=== PATIENT | female | born 1975 | race Caucasian/White ===

== ENCOUNTER → 2017-07-15 16:40 | Outpatient (CLI) | payer OTHER, BC, SELFPAY ==
--- NOTE | 2017-07-15 16:40 | DT_ITS ---
This patient was seen during an EMR downtime July 14, 2017 - July 21, 2017. This patient may have a combination of paper and electronic documentation or all paper documentation. All documentation is viewable within the e-chart portion of [facility] for each patient visit.
[2017-07-20 13:40] LABS: Rapid Plasmin Reagin (RPR) NONREACTIVE (NONREACTIVE)
[2017-07-30 10:41] LABS: HPV APTIMA, High Risk Negative (Negative)
== END ==
PROVIDERS: Visit Provider Obstetrics & Gynecology
DX: Z12.4 Encounter for screening for malignant neoplasm of cervix (principal)
CPT/HCPCS: 86592; 88175; G0145

== ENCOUNTER → 2017-07-15 16:55 | Outpatient (CLI) | payer BC, SELFPAY ==
--- NOTE | 2017-07-15 16:55 | DT_ITS ---
This patient was seen during an EMR downtime July 14, 2017 - July 21, 2017. This patient may have a combination of paper and electronic documentation or all paper documentation. All documentation is viewable within the e-chart portion of [facility] for each patient visit.
[2017-07-18 13:11] LABS: Chlamydia Trachomatis by PCR Negative (Negative); Neisserai gonorrhoeae by PCR Negative (Negative); Probe Check PASS; Sample Adequacy Control PASS; Specimen Processing Control PASS
[2017-07-21 14:22] LABS: HIV - WCH Nonreactive (Nonreactive)
[2017-07-21 21:38] LABS: Estradiol < 11.0 pg/mL; Follicle Stimulating Hormone 40.3 mIU/mL
== END ==
PROVIDERS: Family Provider Preventive Medicine Occupational Medicine; PCP Preventive Medicine Occupational Medicine; Visit Provider Obstetrics & Gynecology
DX: R30.0 Dysuria (principal); Z11.3 Encounter for screening for infections with a predominantly sexual mode of transmission
CPT/HCPCS: 36415; 82670; 83001; 86592; 86703; 87086; 87340; 87491; 87591

== ENCOUNTER → 2018-05-18 | Outpatient (CLI) | payer BC, SELFPAY ==
[2018-05-18 15:03] VITALS: BMI 34.2
--- NOTE | 2018-05-18 15:59 | US_ITS ---
STUDY: ULTRASOUND OF THE FEMALE PELVIS - COMPLETE REASON FOR EXAM: Female, 42 years old. History of endometriosis. LMP: February 24, 2018. TECHNIQUE: Transabdominal and Transvaginal TECHNICAL QUALITY: Adequate. COMPARISON: None. FINDINGS: The uterus is anteverted and is in a midline position. The uterus measures 6.5 cm x 6.0 cm x 2.7 cm. Normal uterine cervix. The endometrium measures 4.0 mm in thickness, and is hyperechoic. There is no demonstrated endometrial mass. There is a 1.7 cm x 2.2 cm x 1.0 cm fibroid in the fundal aspect of the uterus. I.U.D. - The patient does not have an I.U.D. The right ovary is visualized. The right ovary is enlarged and measures 8.2 cm x 4.8 cm x 2.9 cm. There is a 4.8 cm x 3.6 cm x 3.7 cm redundantly cystic mass with echoes within it. This may represent an hemorrhagic cyst. Adjacent to this, there is a 2.8 cm x 3.9 signed by 2.3 cm septated cyst. There is normal arterial and normal venous vascularity. The left ovary is non-visualized. There is minimal fluid in the cul-de-sac. The pre void volume of the bladder was 127 ml. Polycystic ovary disease: No. US/Transvaginal Non- IMPRESSION: Enlargement of the right ovary with the findings suggestive of a hemorrhagic cyst as well as a septated cyst. Small uterine fibroid. Electronically Signed: Kristofer Lerma, at 8:16 EDT , Service support ,
--- NOTE | 2018-05-18 15:59 | US_ITS ---
STUDY: ULTRASOUND OF THE FEMALE PELVIS - COMPLETE REASON FOR EXAM: Female, 42 years old. History of endometriosis. LMP: February 24, 2018. TECHNIQUE: Transabdominal and Transvaginal TECHNICAL QUALITY: Adequate. COMPARISON: None. FINDINGS: The uterus is anteverted and is in a midline position. The uterus measures 6.5 cm x 6.0 cm x 2.7 cm. Normal uterine cervix. The endometrium measures 4.0 mm in thickness, and is hyperechoic. There is no demonstrated endometrial mass. There is a 1.7 cm x 2.2 cm x 1.0 cm fibroid in the fundal aspect of the uterus. I.U.D. - The patient does not have an I.U.D. The right ovary is visualized. The right ovary is enlarged and measures 8.2 cm x 4.8 cm x 2.9 cm. There is a 4.8 cm x 3.6 cm x 3.7 cm redundantly cystic mass with echoes within it. This may represent an hemorrhagic cyst. Adjacent to this, there is a 2.8 cm x 3.9 signed by 2.3 cm septated cyst. There is normal arterial and normal venous vascularity. The left ovary is non-visualized. There is minimal fluid in the cul-de-sac. The pre void volume of the bladder was 127 ml. Polycystic ovary disease: No. US/Pelvic (Non ) IMPRESSION: Enlargement of the right ovary with the findings suggestive of a hemorrhagic cyst as well as a septated cyst. Small uterine fibroid. Electronically Signed: Kristofer Lerma, at 8:16 EDT , Service support ,
== END | disposition home or self-care (01) ==
LOC: US 15:58
PROVIDERS: Family Provider Preventive Medicine Occupational Medicine; PCP Preventive Medicine Occupational Medicine; Referring Provider Obstetrics & Gynecology; Visit Provider Obstetrics & Gynecology
DX: N80.9 Endometriosis, unspecified (principal)
CPT/HCPCS: 76830; 76856; 93976

== ENCOUNTER → 2018-07-10 | Outpatient (CLI) | payer BC, SELFPAY ==
[2018-05-18 15:03] VITALS: BMI 34.2
[2018-07-10 17:06] LABS: Estradiol 15.3 pg/mL
== END | disposition home or self-care (01) ==
LOC: LAB 15:51
PROVIDERS: Family Provider Preventive Medicine Occupational Medicine; PCP Preventive Medicine Occupational Medicine; Referring Provider Obstetrics & Gynecology; Visit Provider Obstetrics & Gynecology
DX: N95.1 Menopausal and female climacteric states (principal)
CPT/HCPCS: 36415; 82670; 83001

== ENCOUNTER → 2019-02-08 11:00 | Outpatient (CLI) | payer MEDICAID, SELFPAY ==
[2018-05-18 15:03] VITALS: BMI 34.2
--- NOTE | 2019-02-14 01:57 | PCM.HPOB.BLA ---
- Problem List (1) Endometriosis Status: Chronic Comment: plan lavhbs rso possible cystectomy possible norah, cysto History and Physical Date of Admission: 02/16/19 Intake Vital Signs 02/05/19 BMI 34.2 02/05/19 Height 5 ft 7 in 02/05/19 Weight: 218 lb 02/05/19 BMI 34.1 02/05/19 BP 137/87 H Intake Visit Reasons: ERAS LAVH RSO poss CYSTECTOMY poss NORAH CYSTOSCOPY Learning And Development Consultant Required: No Is patient in pain?: No Allergies sulfamethoxazole [From Bactrim] Allergy (Verified 02/05/19 11:18) Unknown trimethoprim [From Bactrim] Allergy (Verified 02/05/19 11:18) Unknown Medications Fluoxetine [Prozac] 40 mg PO DAILY 12/14/12 [History Confirmed 02/05/19] Hctz/Bisoprolol Fumarate [Ziac 2.5/6.25MG Tablet] 1 tab PO DAILY 12/14/12 [History Confirmed 02/05/19] traMADol [Ultram (G)] 50 mg PO Q4H PRN PRN #24 tab 12/14/12 [Rx Confirmed 02/05/19] Omeprazole [Prilosec] 40 mg PO BID 11/20/14 [History Confirmed 02/05/19] Zolpidem Tartrate [Ambien (Generic)] 5 mg PO QHS PRN PRN 11/20/14 [History Confirmed 02/05/19] thyroid (pork) 30 mg tablet 30 mg PO DAILY 11/04/17 [History Confirmed 02/05/19] norethindrone 1 mg-ethinyl estradiol 20 mcg (24)-iron 75 mg (4) tablet 1 tab PO QDAY #28 tab 08/16/18 [Rx Confirmed 02/05/19] valacyclovir 500 mg tablet 500 mg PO DAILY #30 tab 01/18/19 [Rx Confirmed 02/05/19] Is last menstrual period known: No Post menopausal: No Patient : No : No PFSH Medical History (Updated 02/05/19 @ 11:26 by Marimar Melvin MD) Anxiety with depression (Acute) Hypertension (Chronic) Mariel's disease (Acute) Hepatitis C (Acute) Thyroid disorder (Acute) Surgical History History of left oophorectomy (Acute) S/P tonsillectomy and adenoidectomy (Acute) Family History Unknown Breast cancer Cancer leukemia Hardening of the arteries of the heart Social History (Updated 02/05/19 @ 11:29 by Marimar Melvin MD) Smoking Status: Never smoker alcohol intake: never substance use type: does not use caffeine: Yes what type of physical activity do you participate in: walking frequency: 3-4 times per week seatbelt use: always do you feel safe at home: Yes additional social history: single- [facility] HPI ERAS LAVH RSO poss CYSTECTOMY poss NORAH CYSTOSCOPY: Details: JAMIL RUBY is a 43 year old who presents for preop appointment for endometriosis planning LAVH RSO cysto. Pregancy History 0 Elective abortions Hx Para Spontaneous abortions Hx # Term Pregnancies Ectopic pregnancies Hx # Pregnancies Multiple births # of living children ROS Const Constitutional: Denies fatigue, fever(s), headache(s), increased appetite, poor appetite, weight gain or weight loss ENT ENT: Denies dry mouth Cardio Card: Denies chest pain Resp Resp: Denies cough or dyspnea GI GI: Reports as per HPI; denies abdominal pain, constipation, nausea or vomiting : Reports as per HPI; denies difficulty urinating, painful urination, blood in urine, nipple discharge, pelvic pain, urinary frequency, urinary incontinence, urinary hesitancy, urinary urgency, vaginal discharge, vaginal dryness, vaginal odor, vaginal itching or other Skin Skin/Breast: Denies nipple discharge Exam Const General: cooperative, healthy appearing, comfortable, no acute distress, well developed Nutritional Appearance: average body habitus Orientation: alert [facility] Head: normal to inspection, normocephalic Ears: hearing grossly normal bilaterally, external ears normal Nose: external nose normal, nares normal Face and sinus: normal facial exam Neck Neck: normal visual inspection, no lymphadenopathy, trachea midline Thyroid: thyroid normal Resp Effort & Inspection: normal respiratory effort GI Inspection: normal to inspection, non-distended Palpation: soft, no hepatosplenomegaly General: bladder normal to palpation External Female Exam: normal external appearance, normal appearance of the urethra Urethra: normal appearance of the urethra, normal palpation, no discharge Speculum Exam - Vagina: normal appearance of the vagina, normal vaginal discharge Speculum Exam - Cervix: normal appearance of the cervix, nontender Bimanual Exam- Vagina & Uterus: normal bimanual exam, uterine size normal, bladder normal to palpation, uterine shape normal, No cervical tenderness, uterine mobility normal, uterine consistency normal, normal cervical palpation, uterus non-tender Bimanual Exam- Adnexa, other: normal adnexae, adnexae mobile, no adnexal masses, pelvic support normal Pelvic Support: normal Musc Other: gross motor intact no deficits, full bilateral strength Skin General: no rashes or lesions noted Neuro Motor: muscle tone normal throughout Assessment & Plan Problems 1. Endometriosis N80.9 plan lavhbs rso possible cystectomy possible norah, cysto Plan After discussing the patient's diagnosis and treatment plan options, patient wishes to proceed with surgical management. I have discussed with the patient the risks, benefits, and alternatives of the procedure which include but are not limited to risks of anesthesia, bleeding, infection, possible damage to bowel, bladder, or surrounding vasculature which could lead to additional surgery to evaluate any complications. Patient agrees to procedure and wishes to proceed. ACOG/uptodate references given for additional information regarding procedure. Coding Level of Care Code No Charge Diagnoses Endometriosis N80.9
[2019-02-15 12:35] LABS: Hematocrit 38.3 % (37-47); Hemoglobin 13.4 g/dL (12.0-15.0); Mean Corpuscular Hgb 31.2 pg (27.0-32.0); Mean Corpuscular Volume 89.3 fL (81-99); Mean Platelet Vol. 9.8 fl (6.2-12.0); Platelet Count 284 K/mm3 (150-450); RBC Distribution Width SD 38.9 fl (35.1-43.9); Red Blood Count 4.29 M/mm3 (4.2-5.4)
[2019-02-15 13:26] LABS: BUN 11 mg/dL (7-18); Glucose 99 mg/dL (74-106)
[2019-02-15 13:27] LABS: AST(SGOT) 18 U/L (15-37); Alanine Aminotransfer ALT/SGPT 25 U/L (13-56); Albumin, Serum 3.6 g/dL (3.2-5.0); Alkaline Phosphatase 48 U/L (45-117); Anion Gap 4 (5-15); BUN/Creat Ratio 13.8 RATIO (10-20); Bilirubin, Direct 0.12 mg/dL (0.00-0.30); Calcium,Total 8.9 mg/dL (8.5-10.1); Chloride 109 mmol/L (98-107); EST Glomerular Filtration Rate 83 mL/min (>60); Est Glom Filt Rate - Afr Amer 100 mL/min (>60); Globulin 3.4 g/dL (2.2-4.2); Potassium 3.6 mmol/L (3.5-5.1); Sodium Level 140 mmol/L (136-145); Thyroid Stim Hormone (TSH) 1.05 uIU/mL (0.358-3.74)
== END ==
PROVIDERS: PCP Preventive Medicine Occupational Medicine; Referring Provider Obstetrics & Gynecology; Visit Provider Obstetrics & Gynecology
DX: Z01.818 Encounter for other preprocedural examination (principal); N80.9 Endometriosis, unspecified; E06.3 Autoimmune thyroiditis; Z79.899 Other long term (current) drug therapy; F41.8 Other specified anxiety disorders; I10 Essential (primary) hypertension
CPT/HCPCS: 36415; 80048; 80076; 84443; 85027; 86850; 86900; 86901

== ENCOUNTER 2019-06-08 11:27 | Day surgery (SDC) | payer OTHER, SELFPAY ==
[2019-02-05 11:18] VITALS: BMI 34.2
[2019-06-08] VITALS (9 sets, daily range): BP systolic 104–139; BP diastolic 63–84; PULSE 62–82; RESP 16–18; TEMP 36.1–37.2; O2SAT 98–100; BMI 34.8; BMI 34.9
--- NOTE | 2019-06-08 | HYST_PTH ---
PATIENT: JAMIL RUBY LOC: [facility] – [place] U#:[id number] AGE/SX: 43/F ROOM: RE06/08/[address]: Dr. Marimar Melvin MD : 1975 BED: DIS: 06/09/2019 SPEC #: [id number] RECD: 06/09/19 12:20 STATUS: RENÉ ZAC #: [id number] ATILIO: 06/08/19 00:[address]: Marimar Melvin DEPT: SURGICAL PATHOLOGY RECD BY: Checo Freeman ENTERED: 06/09/19 12:21 SP TYPE: HYSTERECT OTHR DR: Dr. Elías Carreno DO Tissues: Uterus, NOS Procedures: Surgery Specimen Level V HEADER OPERATION: ERAS, laparoscopic assisted vaginal hysterectomy PRE-OP DIAGNOSIS: Endometriosis N80.9 TISSUE SUBMITTED: Uterus, right fallopian tube and ovary, left fallopian tube MICROSCOPIC DIAGNOSIS Uterus, hysterectomy: Cervix - nabothian cyst, squamous metaplasia and mild chronic inflammation. Endometrium - weakly proliferative endometrium. Myometrium - leiomyomas and focal adenomyosis. Right fallopian tube - benign paratubal cysts. Left fallopian tube - no pathologic change. Right ovary - serous cystadenofibroma. AM:[place] 06/10/19 COMMENT Case has been reviewed in consultation with Dr. Victoria who concurs with the above diagnosis. IDC:BENITO MICROSCOPIC DESCRIPTION Slides are reviewed. GROSS DESCRIPTION Received in fixative is one container labeled with the patient's name and designated uterus, right fallopian tube and ovary and left fallopian tube. The specimen consists of a hysterectomy specimen consisting of uterus with cervix, attached right fallopian tube and ovary and attached left fallopian tube. The uterus with cervix weighs 92 gm and measures 10 x 7 x 4.5 cm. The serosal surface is solis, glistening. The ectocervical mucosa is unremarkable. The external os is circular in contour and covered with hemorrhagic, mucoid material. The triangular endometrial cavity measures 4.5 cm in length and up to 2.5 cm in width. The endometrium is solis, glistening without any mass lesion and measures 0.1 cm in thickness. Sections of the uterine wall reveal multiple intramural and subserosal nodular masses. The largest mass is subserosal in location and measures 2.5 cm in diameter. The uninvolved uterine wall measures up to 2 cm in thickness. The left fallopian tube measures 3.5 cm in length and 0.5 cm in diameter. The fimbrial end is not identified. Sections reveal focally dilated lumen filled with clear fluid. The right fallopian tube measures 6 cm in length and up to 0.6 cm in diameter. The fimbrial end is identified. Sections reveal unremarkable cut surfaces. The soft to cystic right ovary measures 8.5 x 5.5 x 3.5 cm and weighs 71 gm. The external surface does not show any papillation and is inked black. The entire ovary is replaced by a multiloculated cyst with focal solid area and papillation. Veneer Taper sections are submitted in 22 cassettes as follows: 1 - anterior cervix, 2 - posterior cervix, 3 & 4 - anterior uterine wall, 5 & 6 - posterior uterine wall, 7 - largest nodular mass, 8 - smaller nodular masses, 9 - left fallopian tube, 10 - right fallopian tube, 11-22 - right ovary. / BENITO:[place] 06/09/19 TC:1 CPT: 56956
[2019-06-08] MEDS: Lactated Ringers 1,000 ML 40 ML IV (07:00)
[2019-06-08 11:55] LABS: Hematocrit 40.1 % (37-47); Hemoglobin 14.3 g/dL (12.0-15.0); Mean Corp Hgb Conc 35.7 g/dL (32-36); Mean Corpuscular Hgb 31.3 pg (27.0-32.0); Mean Corpuscular Volume 87.7 fL (81-99); Mean Platelet Vol. 9.9 fl (6.2-12.0); Platelet Count 304 K/mm3 (150-450); RBC Distribution Width SD 38.4 fl (35.1-43.9); Red Blood Count 4.57 M/mm3 (4.2-5.4)
[2019-06-08] MEDS: Phenazopyridine 95 MG Tablet 190 MG PO (12:04)
[2019-06-08] MEDS: Celecoxib 200 MG Capsule 400 MG PO (12:04)
[2019-06-08] MEDS: Gabapentin 600 MG Tablet PO (12:05)
[2019-06-08] MEDS: Acetaminophen 500 MG Tablet 1000 MG PO ×3 (12:05→23:00)
[2019-06-08] MEDS: Enoxaparin 40 MG/0.4 ML Syringe SC (12:05)
[2019-06-08 12:06] LABS: Internal QC Validated? YES +Cl - CLEAR BKGD
[2019-06-08 12:07] LABS: Pregnancy, Urine Negative Negative
[2019-06-08 12:19] LABS: AST(SGOT) 21 U/L (15-37); Alanine Aminotransfer ALT/SGPT 26 U/L (13-56); Albumin, Serum 3.6 g/dL (3.2-5.0); Alkaline Phosphatase 64 U/L (45-117); Anion Gap 3 (5-15); BUN 10 mg/dL (7-18); BUN/Creat Ratio 15.1 RATIO (10-20); Bilirubin, Direct 0.11 mg/dL (0.00-0.30); Calcium,Total 8.3 mg/dL (8.5-10.1); Chloride 107 mmol/L (98-107); Creatinine, Serum 0.66 mg/dL (0.55-1.02); EST Glomerular Filtration Rate 102 mL/min (>60); Est Glom Filt Rate - Afr Amer 124 mL/min (>60); Estimated Creatinine Clearance 105.78 ml/min; Globulin 3.6 g/dL (2.2-4.2); Glucose 108 mg/dL (74-106); Magnesium 2.2 mg/dL (1.6-2.6); Protein, Total 7.2 g/dL (6.4-8.2); Sodium Level 139 mmol/L (136-145); Thyroid Stim Hormone (TSH) 1.67 uIU/mL (0.358-3.74)
[2019-06-08 12:30] LABS: Bedside Glucose 113 mg/dL (70-110)
--- NOTE | 2019-06-08 12:42 | PCM.HPOB.BLA ---
- Problem List (1) Endometriosis Status: Chronic Comment: plan lavhbs rso possible cystectomy possible norah, cysto (2) Pelvic pain Status: Acute History and Physical Date of Admission: 06/08/19 Intake Vital Signs 02/05/19 BMI 34.2 02/05/19 Height 5 ft 7 in 02/05/19 Weight: 218 lb 02/05/19 BMI 34.1 02/05/19 BP 137/87 H Intake Visit Reasons: ERAS LAVH RSO poss CYSTECTOMY poss NORAH CYSTOSCOPY Pinion Staker Required: No Is patient in pain?: No Allergies sulfamethoxazole [From Bactrim] Allergy (Verified 02/05/19 11:18) Unknown trimethoprim [From Bactrim] Allergy (Verified 02/05/19 11:18) Unknown Medications Fluoxetine [Prozac] 40 mg PO DAILY 12/14/12 [History Confirmed 02/05/19] Hctz/Bisoprolol Fumarate [Ziac 2.5/6.25MG Tablet] 1 tab PO DAILY 12/14/12 [History Confirmed 02/05/19] traMADol [Ultram (G)] 50 mg PO Q4H PRN PRN #24 tab 12/14/12 [Rx Confirmed 02/05/19] Omeprazole [Prilosec] 40 mg PO BID 11/20/14 [History Confirmed 02/05/19] Zolpidem Tartrate [Ambien (Generic)] 5 mg PO QHS PRN PRN 11/20/14 [History Confirmed 02/05/19] thyroid (pork) 30 mg tablet 30 mg PO DAILY 11/04/17 [History Confirmed 02/05/19] norethindrone 1 mg-ethinyl estradiol 20 mcg (24)-iron 75 mg (4) tablet 1 tab PO QDAY #28 tab 08/16/18 [Rx Confirmed 02/05/19] valacyclovir 500 mg tablet 500 mg PO DAILY #30 tab 01/18/19 [Rx Confirmed 02/05/19] Is last menstrual period known: No Post menopausal: No Patient : No : No PFSH Medical History (Updated 02/05/19 @ 11:26 by Marimar Melvin MD) Anxiety with depression (Acute) Hypertension (Chronic) Mariel's disease (Acute) Hepatitis C (Acute) Thyroid disorder (Acute) Surgical History History of left oophorectomy (Acute) S/P tonsillectomy and adenoidectomy (Acute) Family History Unknown Breast cancer Cancer leukemia Hardening of the arteries of the heart Social History (Updated 02/05/19 @ 11:29 by Marimar Melvin MD) Smoking Status: Never smoker alcohol intake: never substance use type: does not use caffeine: Yes what type of physical activity do you participate in: walking frequency: 3-4 times per week seatbelt use: always do you feel safe at home: Yes additional social history: single- [facility] HPI ERAS LAVH RSO poss CYSTECTOMY poss NORAH CYSTOSCOPY: Details: JAMIL RUBY is a 43 year old who presents for preop appointment for endometriosis planning LAVH RSO cysto. Pregancy History 0 Elective abortions Hx Para Spontaneous abortions Hx # Term Pregnancies Ectopic pregnancies Hx # Pregnancies Multiple births # of living children ROS Const Constitutional: Denies fatigue, fever(s), headache(s), increased appetite, poor appetite, weight gain or weight loss ENT ENT: Denies dry mouth Cardio Card: Denies chest pain Resp Resp: Denies cough or dyspnea GI GI: Reports as per HPI; denies abdominal pain, constipation, nausea or vomiting : Reports as per HPI; denies difficulty urinating, painful urination, blood in urine, nipple discharge, pelvic pain, urinary frequency, urinary incontinence, urinary hesitancy, urinary urgency, vaginal discharge, vaginal dryness, vaginal odor, vaginal itching or other Skin Skin/Breast: Denies nipple discharge Exam Const General: cooperative, healthy appearing, comfortable, no acute distress, well developed Nutritional Appearance: average body habitus Orientation: alert [facility] Head: normal to inspection, normocephalic Ears: hearing grossly normal bilaterally, external ears normal Nose: external nose normal, nares normal Face and sinus: normal facial exam Neck Neck: normal visual inspection, no lymphadenopathy, trachea midline Thyroid: thyroid normal Resp Effort & Inspection: normal respiratory effort GI Inspection: normal to inspection, non-distended Palpation: soft, no hepatosplenomegaly General: bladder normal to palpation External Female Exam: normal external appearance, normal appearance of the urethra Urethra: normal appearance of the urethra, normal palpation, no discharge Speculum Exam - Vagina: normal appearance of the vagina, normal vaginal discharge Speculum Exam - Cervix: normal appearance of the cervix, nontender Bimanual Exam- Vagina & Uterus: normal bimanual exam, uterine size normal, bladder normal to palpation, uterine shape normal, No cervical tenderness, uterine mobility normal, uterine consistency normal, normal cervical palpation, uterus non-tender Bimanual Exam- Adnexa, other: normal adnexae, adnexae mobile, no adnexal masses, pelvic support normal Pelvic Support: normal Musc Other: gross motor intact no deficits, full bilateral strength Skin General: no rashes or lesions noted Neuro Motor: muscle tone normal throughout Assessment & Plan Problems 1. Endometriosis N80.9 plan lavhbs rso possible cystectomy possible norah, cysto Plan After discussing the patient's diagnosis and treatment plan options, patient wishes to proceed with surgical management. I have discussed with the patient the risks, benefits, and alternatives of the procedure which include but are not limited to risks of anesthesia, bleeding, infection, possible damage to bowel, bladder, or surrounding vasculature which could lead to additional surgery to evaluate any complications. Patient agrees to procedure and wishes to proceed. ACOG/uptodate references given for additional information regarding procedure. Coding Level of Care Code No Charge Diagnoses Endometriosis N80.9 Essential Procedure Criteria Procedure Essential: Yes Criteria Note: On 04/27/2019 the [facility] ([facility]) Public Order signed by [facility] Director Oneida Poe M.D., regarding the Management of Non-Essential Surgeries and Procedures for the purpose of preserving Personal Protective Equipment (PPE) and critical hospital capacity and resources within [place] went into effect as of 04/28/2019 at 5:00PM. According to the [facility] Public Order: This action will remain in full force and effect until the State of Emergency declared by the Governor no longer exists or the Director of the [facility] rescinds or modifies this Order.. This [facility] order stated all non-essential or elective surgeries and procedures that utilize PPE should be delayed unless there is undue risk to the current or future health of a patient. After reviewing the aforementioned [facility] Public Order and the patients clinical case, I have determined that the scheduled procedure meets the criteria to go forward. Risk to Patient if Procedure Delayed: Presence of severe symptoms causing an inability to perform ADL's
--- NOTE | 2019-06-08 12:56 | OP.PCM_ITS ---
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 Patient was taken back to the operating room and placed in the dorsal lithotomy position. General anesthesia was induced and patient was prepped and draped in normal sterile fashion. Uterine manipulator was placed inside the uterus and Fields catheter placed in the bladder. The umbilicus was grasped with towel clamps and an intraumbilical incision was made after injecting with quarter per cent Marcaine and a Veress needle entered into the abdomen confirmed to be intra-abdominal with a low opening pressure. Abdomen was insufflated with CO2 gas and the Veress needle removed and the 5 mm trocar was placed under direct visualization without complication. Right and left lower quadrants were transilluminated and injected with quarter percent Marcaine and 5 mm ports placed under direct visualization. Pelvis was well visualized see operative findings for additional information. Bilateral fallopian tubes were identified and transected with the LigaSure device across the mesosalpinx to the level of the utero-ovarian ligament which was also transected with the LigaSure device. right IP ligament transected to also remove the right ovary. The broad ligament was opened up by transecting the round ligament bilaterally and skeletonizing the uterine vessels bilaterally and creating a bladder flap using the LigaSure device. The uterine arteries were transected bilaterally with good visualization of the bladder and the ureters were seen to be inferior lateral to the operative area. Attention was then paid to the vaginal portion of the procedure and the cervix was grasped with Adonis clamps and circumferentially injected with dilute vasopressin. A circumferential incision was made and the vaginal mucosa was mobilized off posteriorly and the cul-de-sac entered into sharply and a longneck speculum placed. The anterior cul-de-sac was then identified and entered into sharply. The uterosacral ligaments were clamped cut and suture ligated with 0 Monocryl bilaterally followed by the cardinal ligaments which were clamped cut and suture ligated bilaterally with 0 Monocryl. The uterus serially descended and was removed without difficulty with minimal morcellation. Pelvic sidewall pedicles were checked and noted to have excellent hemostasis. The vaginal mucosa was reapproximated incorporating the posterior peritoneum. This was reapproximated using 0 Vicryl [id number] sutures. Excellent hemostasis was noted. The cystoscopy was then performed and bilateral ureteral strong spray was noted and the bladder was noted to have no abnormality or lesions seen. Fields catheter was replaced and then attention paid to the abdominal portion of the procedure again. The pelvis and cul-de-sac was well visualized and no significant active bleeding noted but some raw areas were seen on the peritoneum and therefore Austin was applied. Pressure was taken down and the areas visualized and noted of excellent hemostasis. All ports were removed under direct visualization without complication and the abdomen was desufflated of air. The instruments removed from the abdomen and the vagina vaginal sweep was negative. Port sites on the abdomen were closed with 4-0 Monocryl interrupted sutures and Steri's and windows were applied. She was awoken and taken recovery in stable condition. Grafts/Implants Used: none - Complications none Multi Select Codes - Urinary/Genital Urinary/Genital CPT Codes: 99965 Cystoscopy, 84164 LAVH+BS/O <250gr Uterus
[2019-06-08] MEDS: Cefazolin 2 GM in 0.9% Normal Saline 100 ML IV (14:08)
[2019-06-08] MEDS: Vasopressin 20 UNITS/ML Vial (14:58)
[2019-06-08] MEDS: Ondansetron 4 MG/2 ML Vial IV (15:21)
[2019-06-08] MEDS: Bupivacaine 0.25% 30 ML Vial (15:26)
[2019-06-08] MEDS: Lactated Ringers 1,000 ML 70 ML IV (16:21)
--- NOTE | 2019-06-08 16:43 | PCM.DC.VHY ---
Discharge Diet: No Restrictions Discharge Activity: Return to Normal Activity, May Not Drive, May Shower May resume sexual activity in: 6-8 weeks Call your doctor if your incision/area has: Continuous Slow Oozing, Sudden Increased Bleeding, Increased Pain/ Swelling, Increased Redness, Foul Smelling Discharge Call your doctor if you observe: Fever of 101 or Higher, Inability to urinate, Inability to have a bowel movement, Using more than one pad per hour Allergies/Adverse Reactions: Allergies sulfamethoxazole [From Bactrim] Allergy (Verified 06/08/19 11:53) Unknown trimethoprim [From Bactrim] Allergy (Verified 06/08/19 11:53) Unknown Medications to take at Discharge Fluoxetine [Prozac] 10 mg PO DAILY 12/14/12 traMADol [Ultram (G)] 50 mg PO Q4H PRN PRN #24 tab 12/14/12 Zolpidem Tartrate [Ambien (Generic)] 5 mg PO QHS PRN PRN 11/20/14 thyroid (pork) 30 mg tablet 30 mg PO DAILY 11/04/17 norethindrone 1 mg-ethinyl estradiol 20 mcg (24)-iron 75 mg (4) tablet 1 tab PO QDAY #28 tab 08/16/18 Alprazolam [Xanax] 0.25 mg PO PRN PRN 02/08/19 Ashwagandha 800 mg PO BID 06/04/19 Bisoprolol/Hydrochlorothiazide [Ziac 2.5-6.25 mg Tablet] 1 ea PO DAILY 06/04/19 Ginseng 800 mg PO DAILY 06/04/19 Macro Root 800 mg PO BID 06/04/19 Valacyclovir HCl [Valacyclovir] 500 mg PO DAILY 06/04/19 Naproxen [Naprosyn] 250 - 500 mg PO Q8H PRN PRN #30 tab 06/08/19 Oxycodone HCl/Acetaminophen [Percocet 5-325] 1 - 2 tab PO Q6H PRN PRN 7 Days #15 tab 06/08/19 The following prescriptions were given: Naproxen [Naprosyn] 250 - 500 mg PO Q8H PRN PRN #30 tab PRN Reason: MILD PAIN Transmission Status: Received by [facility] Oxycodone HCl/Acetaminophen [Percocet 5-325] 1 - 2 tab PO Q6H PRN PRN 7 Days #15 tab PRN Reason: Pain Transmission Status: Received by [facility] Primary Care Physician: Elías Carreno DO [Primary Care Provider] - Test Results: Test results from this visit will be discussed in further detail at your follow-up appointment, if applicable. Please Follow Up With: Marimar Melvin MD - [phone]
[2019-06-08] MEDS: Ketorolac 30 MG/ML Syringe IV ×2 (16:44→23:01)
[2019-06-08] MEDS: oxyCODONE 5 MG Tablet PO ×2 (18:51→22:47)
[2019-06-08] MEDS: Docusate Sodium 100 MG Capsule PO (22:47)
[2019-06-08] MEDS: Acyclovir 200 MG Capsule 400 MG PO (22:47)
[2019-06-08] MEDS: Zolpidem Tartrate 5 MG Tablet PO (22:47)
--- NOTE | 2019-06-08 23:58 | NURSING ---
PT resting in bed. This RN introduced self to the patient and explained we have paged the doctor multiple times and have not had a call back for additional. pt very understanding. She reports medications are starting to help and she wants to try and get some sleep.
[2019-06-09] MEDS: HYDROmorphone 1 MG/ML Syringe IV ×3 (00:45→14:53)
[2019-06-09 03:10] VITALS: BP 113/60; PULSE 97; RESP 16; TEMP 37.1; O2SAT 95
[2019-06-09 06:34] LABS: Hematocrit 35.8 % (37-47); Hemoglobin 12.9 g/dL (12.0-15.0); Mean Corpuscular Hgb 31.3 pg (27.0-32.0); Mean Corpuscular Volume 86.9 fL (81-99); Mean Platelet Vol. 9.6 fl (6.2-12.0); Platelet Count 279 K/mm3 (150-450); RBC Distribution Width SD 38.3 fl (35.1-43.9); Red Blood Count 4.12 M/mm3 (4.2-5.4); White Blood Count 10.3 K/mm3 (4.4-11.0)
[2019-06-09] MEDS: Ketorolac 30 MG/ML Syringe IV ×2 (06:41→11:26)
[2019-06-09] MEDS: Acetaminophen 500 MG Tablet 1000 MG PO ×2 (06:41→12:17)
[2019-06-09] MEDS: oxyCODONE 5 MG Tablet PO ×2 (06:47→11:24)
[2019-06-09] MEDS: 0.9% Saline Lock 10 ML Syringe IV ×2 (07:36→14:53)
[2019-06-09 08:02] VITALS: O2SAT 96
--- NOTE | 2019-06-09 08:56 | PN.OBGYN_ITS ---
Patient Problems: Active and Suspected Problems (Last Updated 02/05/19 @ 11:[address] Marimar Melvin MD) Pelvic pain (Acute) Subjective: patient recovering well, denies CP, SOB, N, or V. patient is ambulating, voiding ,tolerating adequate po, and pain is controlled with oral medications. - Physical Exam Vitals/I&O's: Vital Signs Temp Pulse Resp BP Pulse Ox 98.8 F 97 16 113/60 95 06/09/19 03:10 06/09/19 03:10 06/09/19 03:10 06/09/19 03:10 06/09/19 03:10 Oxygen Flow Rate (L/min) 6 Oxygen Delivery Method Room Air Weight: 222 lb 7.143 oz Body Mass Index (BMI) 34.9 Intake and Output for Last 24 Hours 06/07/19 06/08/19 06/09/19 23:59 23:59 23:59 Intake Total 2270 / 2270 500 / 500 Output Total 600 / 600 900 / 900 Balance 1670 / 1670 -400 / -400 General: Alert, Oriented x3 Laboratory Results 06/08/19 11:45: WBC 6.0, RBC 4.57, Hgb 14.3, Hct 40.1, MCV 87.7, MCH 31.3, MCHC 35.7, RDW Std Deviation 38.4, RDW Coeff of Payal 12.0, Plt Count 304, MPV 9.9 06/08/19 11:45: Sodium 139, Potassium 4.0, Chloride 107, Carbon Dioxide 29.0, Anion Gap 3 L, BUN 10, Creatinine 0.66, Estim Creat Clear Calc 105.78, Est GFR (MDRD) Af Amer 124, Est GFR (MDRD) Non-Af 102, BUN/Creatinine Ratio 15.1, Glucose 108 H, Calcium 8.3 L, Magnesium 2.2, Total Bilirubin 0.40, Direct Bilirubin 0.11, AST 21, ALT 26, Alkaline Phosphatase 64, Total Protein 7.2, Albumin 3.6, Globulin 3.6, TSH 1.67 06/08/19 11:45: Blood Type O POSITIVE, Antibody Screen NEGATIVE 06/08/19 12:01: POC Glucose 113 H 06/08/19 : Urine Test Negative 06/09/19 06:26: WBC 10.3, RBC 4.12 L, Hgb 12.9, Hct 35.8 L, MCV 86.9, MCH 31.3, MCHC 36.0, RDW Std Deviation 38.3, RDW Coeff of Payal 12.0, Plt Count 279, MPV 9.6 Current Medications Acetaminophen (Tylenol) 1,000 mg PO Q6 [facility] Last Admin: 06/09/19 06:41 Dose: 1,000 mg Documented by: Acyclovir (Zovirax) 400 mg PO BID [facility] Last Admin: 06/08/19 22:47 Dose: 400 mg Documented by: Alprazolam (Xanax) 0.25 mg PO BID PRN PRN Reason: ANXIETY Bisoprolol Fumarate (Zebeta) 2.5 mg PO DAILY [facility] Docusate Sodium (Colace) 100 mg PO BID [facility] Last Admin: 06/08/19 22:47 Dose: 100 mg Documented by: Enoxaparin Sodium (Lovenox) 40 mg SC DAILY [facility] Fluoxetine HCl (Prozac) 10 mg PO DAILY [facility] Hydrochlorothiazide () 6.25 mg PO DAILY [facility] Hydromorphone HCl (Dilaudid Inj) 1 - 2 mg IV Q3H PRN PRN PRN Reason: pain 5-10/10 Last Admin: 06/09/19 07:36 Dose: 1 mg Documented by: Lactated Ringer's () 1,000 mls @ 70 mls/hr IV .[id number] [facility] Stop: 06/09/19 16:41 Last Admin: 06/08/19 17:37 Dose: Not Given Documented by: Ketorolac Tromethamine (Toradol (Bkc)) 30 mg IV Q6 [facility] Stop: 06/10/19 00:01 Last Admin: 06/09/19 06:41 Dose: 30 mg Documented by: Magnesium Oxide (Mag-Ox 400) 400 mg PO DAILY PRN PRN PRN Reason: Constipation Nutritional Formula (Lactose Free) (Ensure Enlive) 120 ml PO TIDCM [facility] Last Admin: 06/09/19 07:42 Dose: 120 ml Documented by: Ondansetron HCl (Zofran Odt) 4 mg PO Q6H PRN PRN PRN Reason: NAUSEA Oxycodone HCl (Oxyir) 5 - 10 mg PO Q4H PRN PRN PRN Reason: Pain Score 4-10/10 Last Admin: 06/09/19 06:47 Dose: 10 mg Documented by: Sodium Chloride () 10 - 40 ml IV UD PRN PRN Reason: SALINE FLUSH Last Admin: 06/09/19 07:36 Dose: 10 ml Documented by: Thyroid ([place] Thyroid) 30 mg PO DAILY [facility] Zolpidem Tartrate (Ambien (Generic)) 5 mg PO QHS PRN PRN PRN Reason: SLEEP Last Admin: 06/08/19 22:47 Dose: 5 mg Documented by: Medical Necessity - Tobacco Use Smoking Status: Former smoker Tobacco Use: Non-smoker Assessment/Plan All Active Problems (Last Updated 02/05/19 @ 11:[address] Marimar Melvin MD) Pelvic pain (Acute) patient is s/p lavh POD 1 1. routine ERAS protocol postop care- increase ambulation, encourage oral intake and oral control of pain. lovenox and scds for dvt prophylaxis, patient stable for discharge to home.
[2019-06-09] MEDS: Enoxaparin 40 MG/0.4 ML Syringe SC (10:07)
[2019-06-09] MEDS: Docusate Sodium 100 MG Capsule PO (10:07)
[2019-06-09] MEDS: FLUoxetine 10 MG Capsule PO (10:08)
[2019-06-09] MEDS: Acyclovir 200 MG Capsule 400 MG PO (10:08)
[2019-06-09] MEDS: Bisoprolol Fumarate 5 MG Tablet 2.5 MG PO (10:08)
[2019-06-09] MEDS: Thyroid 15 MG Tablet 30 MG PO (10:08)
[2019-06-09] MEDS: hydroCHLOROthiazide 6.25mg TAB 6.25 MG PO (10:08)
[2019-06-09 15:13] VITALS: BP 140/93; PULSE 68; RESP 18; TEMP 37; O2SAT 98
== END 2019-06-09 15:05 | disposition home or self-care (01) ==
LOC: SDC 11:29 → AC 11:29 → MS3 06-09 06:17
PROVIDERS: PCP Preventive Medicine Occupational Medicine; Referring Provider Obstetrics & Gynecology; Visit Provider Obstetrics & Gynecology
PROC: 0UT9FZZ Resection of Uterus, Via Natural or Artificial Opening With Percutaneous Endoscopic Assistance (ICD-10-PCS; CPT 58552; principal; 2019-06-08 12:05)
DX: N80.9 Endometriosis, unspecified (principal); N88.8 Other specified noninflammatory disorders of cervix uteri; N72 Inflammatory disease of cervix uteri; N87.9 Dysplasia of cervix uteri, unspecified; D25.9 Leiomyoma of uterus, unspecified; N80.0 Endometriosis of uterus; N83.8 Other noninflammatory disorders of ovary, fallopian tube and broad ligament; D27.0 Benign neoplasm of right ovary; I10 Essential (primary) hypertension; F41.9 Anxiety disorder, unspecified; F32.9 Major depressive disorder, single episode, unspecified; E06.3 Autoimmune thyroiditis; E07.9 Disorder of thyroid, unspecified; Z87.891 Personal history of nicotine dependence; Z79.891 Long term (current) use of opiate analgesic; Z79.899 Other long term (current) drug therapy
CPT/HCPCS: 58552; 36415; 80048; 80076; 81025; 82962; 83735; 84443; 85027; 86850; 86900; 86901; 88307; 99251; J7120; A4216; G0463; J2405

== ENCOUNTER 2020-11-18 14:20 | Emergency (ER) | payer BC, MEDICAID, SELFPAY ==
[2020-11-18 14:20] VITALS: BP 103/76; PULSE 63; RESP 20; TEMP 36.1; O2SAT 98; BMI 40.2
[2020-11-18 14:50] VITALS: PULSE 56
[2020-11-18 14:53] VITALS: O2SAT 96
--- NOTE | 2020-11-18 15:17 | EDS_ITS ---
HPI History of Present Illness Chief Complaint: Shortness of Breath Informant: patient Narrative Narrative: 45-year-old female presents with generalized swelling intermittent since she had Covid in February. She states that she was prescribed spironolactone and triamterene. She states that she saw her doctor recently was taken off of triamterene due to a contraindication with one of her medications. She is still on spironolactone and Ziac. She states that she has progressively gotten more swollen since that time and is now experiencing shortness of breath. She states she has had an echocardiogram at an outside hospital that was normal. She notes a cough that is nonproductive. She notes frequent urination. 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 Hypertension Thyroid disorder Home Medications zolpidem 10 mg PO QHS PRN PRN 11/20/14 [History Last Taken Unknown] thyroid (pork) 30 mg tablet 30 mg PO DAILY 11/04/17 [History Last Taken Unknown] alprazolam 0.25 mg PO BID PRN PRN 02/08/19 [History Last Taken 06/08/19] Ashwagandha 800 mg PO BID 06/04/19 [History Last Taken Unknown] Macro Root 800 mg PO BID 06/04/19 [History Last Taken Unknown] bisoprolol-hydrochlorothiazide 1 ea PO DAILY 06/04/19 [History Last Taken ] ginseng 800 mg PO DAILY 06/04/19 [History Last Taken Unknown] sertraline 50 mg tablet 50 mg PO DAILY 12/20/19 [History Last Taken Unknown] valacyclovir 500 mg tablet 500 mg PO DAILY #90 tab 01/18/20 [Rx Last Taken Unknown] clonidine HCl 0.1 mg PO QHS 11/18/20 [History Last Taken Unknown] conjugated estrogens [Premarin] mg PO DAILY 11/18/20 [History Last Taken Unknown] furosemide [Lasix] 40 mg PO DAILY #5 tab 11/18/20 [Rx Last Taken Unknown] Allergy/AdvReac Type Severity Reaction Status Date / Time sulfamethoxazole Allergy Unknown Verified 12/20/19 10:47 [From Bactrim] trimethoprim [From Bactrim] Allergy Unknown Verified 12/20/19 10:47 Family History Unknown Breast cancer Cancer leukemia Hardening of the arteries of the heart Surgical History History of left oophorectomy S/P laparoscopic assisted vaginal hysterectomy (LAVH) S/P tonsillectomy and adenoidectomy Social History Smoking Status: Former smoker alcohol intake: never substance use type: does not use caffeine: Yes what type of physical activity do you participate in: walking frequency: 3-4 times per week seatbelt use: always do you feel safe at home: Yes additional social history: single- [facility] ROS ROS ED Constitutional Constitutional ED: Denies chills or weight loss Eyes Eyes: Denies change in vision or diplopia ENT ENT ED: Denies ear pain, rhinorrhea or sore throat Cardiovascular Cardiovascular: Denies chest pain, orthopnea, palpitations or racing heartbeat Respiratory/Chest Respiratory/Chest: Reports cough, dyspnea and dyspnea on exertion; Denies orthopnea or sputum Gastrointestinal Gastrointestinal: Denies abdominal pain, diarrhea, nausea or vomiting Genitourinary Genitourinary ED: Denies dysuria, hematuria or urinary frequency Musculoskeletal Musculoskeletal: Reports other Details: Peripheral edema ; Denies arthralgias or myalgias Integumentary Denies abscess or rash Neurologic Neurologic: Denies headache(s) or weakness Psychiatric Psychiatric: Denies anxiety, depression, suicidal ideation or suicidal thoughts Endocrine Endocrinology: Denies polydipsia, polyphagia or polyuria Allergic/Immunologic Allergic/Immunologic ED: Denies mouth swelling, tongue swelling or urticaria EXAM Physical Exam Const Vital Signs: 11/18/20 14:20 11/18/20 14:50 11/18/20 14:53 Temperature 97.0 F L Temperature Source Oral Pulse Rate 63 56 L Respiratory Rate 20 H Respiratory Depth Normal Respiratory Pattern Normal Blood Pressure 103/76 Blood Pressure Mean 85 Pulse Ox 98 Oxygen Delivery Method Room Air Positive well nourished and well developed General Appearance ED: well developed HEENT Reports normocephalic, head/scalp atraumatic and moist mucous membranes Eyes PERRL and EOMs intact bilaterally Neck no lymphadenopathy, supple and no JVD Resp normal respiratory effort and clear to auscultation bilaterally Cardio regular rate, regular rhythm and no murmurs GI normal to inspection, nondistended, normoactive bowel sounds and non-tender Palpation: soft Back/Spine no CVA tenderness and normal ROM Extremity Extremity Narrative: No deformities. Patient has diffuse edema of the feet and legs as well as hands. General Extremety ED: Yes edema General Extremity: edema Neuro oriented x3 and CN's II-XII intact bilaterally Sensorium / Orientation: alert Motor Exam: strength 5/5 throughout Psych mental status grossly normal Mood & Affect: Negative for depressed or tearful Skin no rashes or lesions noted and no wounds MDM MDM MDM Narrative Medical decision making narrative: Basic blood work showed a normal creatinine. White count 7.7 with a hemoglobin 13.7. High-sensitivity troponin V. Beta natruretic peptide 65.2. My interpretation of the chest x-ray is no acute process. At rest the patient is about 100% on room air. She does not significantly desaturate with ambulation. She is still on Ziac. Her potassium is 4.2. I am going to write for her to have 5 days of Lasix 40 mg. On Friday she should call her primary care physician to discuss further medications. Lab Data Attestation: I reviewed the patient's lab results. Labs: Laboratory Results - last 24 hr 11/18/20 11/18/20 11/18/20 15:15 15:15 15:15 WBC 7.7 RBC 4.18 L Hgb 13.7 Hct 37.9 MCV 90.7 MCH 32.8 H MCHC 36.1 H RDW Std Deviation 42.2 RDW Coeff of Payal 12.8 Plt Count 232 MPV 10.0 Immature Gran % (Auto) 0.300 Neut % (Auto) 50.1 Lymph % (Auto) 37.2 [place] % (Auto) 8.9 Eos % (Auto) 2.7 Baso % (Auto) 0.8 Absolute Neuts (auto) 3.8 Absolute Lymphs (auto) 2.85 Nucleated RBC % 0 Sodium 142 Potassium 4.2 Chloride 109 H Carbon Dioxide 29.0 Anion Gap 4 L BUN 15 Creatinine 0.84 Estim Creat Clear Calc 81.38 Est GFR (MDRD) Af Amer 93 Est GFR (MDRD) Non-Af 77 BUN/Creatinine Ratio 17.8 Glucose 102 Calcium 8.9 Troponin I High Sens 5 B-Natriuretic Peptide 65.2 Radiography Diagnostic Testing: Clinical Impression(s) from Imaging Studies Chest X-Ray 11/18/20 15:35 IMPRESSION: No radiographic evidence of acute cardiopulmonary disease. at 1600 Reported and signed by: Alysha Camacho MD Electronically Signed: Alysha Camacho MD at 15:59 EDT Tel , Service support , Discharge Plan Triage Chief Complaint: Shortness of Breath ED Provider: Earl Brown Dx/Rx/DC Orders Clinical Impression: Peripheral edema, Acute dyspnea Instructions: ED Peripheral Edema, Bilateral Prescriptions: New furosemide [Lasix] 40 mg tablet 40 mg PO DAILY Qty: 5 RF: 0 No Action thyroid (pork) [[place] Thyroid] 30 mg tablet 30 mg PO DAILY RF: 0 sertraline [Zoloft] 50 mg tablet 50 mg PO DAILY RF: 0 zolpidem 5 MG tablet 10 mg PO QHS PRN PRN (Reason: Sleep) RF: 0 alprazolam 0.25 MG tablet 0.25 mg PO BID PRN PRN (Reason: Anxiety) RF: 0 Ashwagandha 800 mg PO BID RF: 0 ginseng 100 MG capsule 800 mg PO DAILY RF: 0 bisoprolol-hydrochlorothiazide 1 EACH tablet 1 ea PO DAILY RF: 0 Macro Root 800 mg PO BID RF: 0 clonidine HCl 0.1 mg tablet 0.1 mg PO QHS RF: 0 Premarin 0.625 mg tablet PO DAILY RF: 0 valacyclovir 500 mg tablet 500 mg PO DAILY Qty: 90 RF: 3 Primary Care Provider: Elías Carreno Referrals: Elías Carreno DO [Primary Care Provider] - 3-5 Days Disposition Disposition: Home, Self Care
--- NOTE | 2020-11-18 15:35 | RAD_ITS ---
HISTORY: dyspnea. TECHNIQUE: XR Chest 1 View. # of images incl. paperwork: 1. COMPARISON: 11/20/2014. FINDINGS: CARDIOMEDIASTINAL STRUCTURES: Cardiac silhouette not enlarged. Mediastinal contour unremarkable. LUNGS: Radiographically clear. PLEURA: No pleural effusion or pneumothorax. OSSEOUS STRUCTURES: Unremarkable. RAD/Chest 1 View (Portable) IMPRESSION: No radiographic evidence of acute cardiopulmonary disease. at 1600 Reported and signed by: Alysha Camacho MD Electronically Signed: Alysha Camacho MD at 15:59 EDT Tel , Service support ,
[2020-11-18 15:44] LABS: Absolute Lymphocyte Count 2.85 X10^3/uL (0.83-4.51); Absolute Neutrophil Count 3.8 X10^3/uL (2.0-7.7); Basophil# 0.06 X10^3/uL; Basophil% 0.8 % (0-1); Eosinophil# 0.21 X10^3/uL; Eosinophils% 2.7 % (0-5); Hematocrit 37.9 % (37-47); Hemoglobin 13.7 g/dL (12.0-15.0); Lymphocyte # 2.85 X10^3/ul (0.83-4.51); Lymphocyte % 37.2 % (19-41); Mean Corp Hgb Conc 36.1 g/dL (32-36); Mean Corpuscular Hgb 32.8 pg (27.0-32.0); Mean Corpuscular Volume 90.7 fL (81-99); Monocyte# 0.68 X10^3/uL; Monocyte% 8.9 % (0-10); NRBC Flagged by Analyzer 0 % (0-5); Neutrophil # 3.84 X10^3/uL (2.7-7.7); Neutrophil % 50.1 % (47-70); Platelet Count 232 K/mm3 (150-450); RBC Distribution Width CV 12.8 % (11.6-14.6); RBC Distribution Width SD 42.2 fl (35.1-43.9); Red Blood Count 4.18 M/mm3 (4.2-5.4); White Blood Count 7.7 K/mm3 (4.4-11.0)
[2020-11-18 15:59] LABS: Anion Gap 4 (5-15); BUN 15 mg/dL (7-18); BUN/Creat Ratio 17.8 RATIO (10-20); Calcium,Total 8.9 mg/dL (8.5-10.1); Chloride 109 mmol/L (98-107); Creatinine, Serum 0.84 mg/dL (0.55-1.02); EST Glomerular Filtration Rate 77 mL/min (>60); Est Glom Filt Rate - Afr Amer 93 mL/min (>60); Estimated Creatinine Clearance 81.38 ml/min; Glucose 102 mg/dL (74-106); Potassium 4.2 mmol/L (3.5-5.1); Sodium Level 142 mmol/L (136-145); Troponin-I HS 5 pg/mL (3.0-54.0)
[2020-11-18 16:01] LABS: BNP,B-Type NATRIURETIC PEPTIDE 65.2 pg/mL (0-100)
[2020-11-18 16:14] VITALS: O2SAT 99
== END 2020-11-18 16:47 | disposition home or self-care (01) ==
PROVIDERS: Emergency Provider Emergency Medicine; PCP Preventive Medicine Occupational Medicine
DX: R60.0 Localized edema (principal); R06.00 Dyspnea, unspecified; F41.9 Anxiety disorder, unspecified; F32.9 Major depressive disorder, single episode, unspecified; I10 Essential (primary) hypertension; E06.3 Autoimmune thyroiditis; Z79.899 Other long term (current) drug therapy; Z87.891 Personal history of nicotine dependence
CPT/HCPCS: 71045; 80048; 83880; 84484; 85025; 99284; A4216